=== PATIENT | female | born 1995 | race African-American/Black ===

== ENCOUNTER → 2016-05-17 | Outpatient (CLI) | payer BC ==
[2015-07-16 23:13] VITALS: BP 125/76
--- NOTE | 2016-05-17 15:52 | RAD ---
Early OB ultrasound History: Evaluate size and dates. Technique: Real-time grayscale sonographic images of the gravid uterus were performed transabdominally and transvaginally. Transabdominal imaging was performed to evaluate optimally the uterine fundus. Endovaginal imaging was performed to evaluate optimally the endometrial canal and to increase sensitivity for detection of intrauterine . Comparison: None. Findings: Transabdominal imaging: Uterus measures 9.1 cm in length. Intrauterine is identified with gestational sac and yolk sac thought visualized. Neither ovary is well seen with transabdominal imaging. Endovaginal imaging: Single live intrauterine is identified with gestational sac, yolk sac, and embryonic pole seen. The crown-rump length is 4.1 mm corresponding to 6 weeks 1 day. Estimated date of delivery based on this measurement is January 09, 2017. Gestational age estimation bilateral superior calculation is 12 weeks 1 day. Recommend correlation as to discrepancy. Embryonic heart motion is detected, calculated at 118 bpm. Left ovary measures 2.8 x 1.9 x 1.6 cm and demonstrates several small follicles. Right ovary measures 3.4 x 1.7 x 2.1 cm and is unremarkable. Both ovaries demonstrate normal vascular flow upon Doppler interrogation and are without evidence of torsion. No adnexal masses are seen. Impression: 1. Single live intrauterine . Average ultrasound age is 6 weeks 1 day. Estimated date of delivery is January 09, 2017. 2. Gestational age estimation by last menstrual period calculation is 12 weeks 1 day. Recommend clinical correlation as to cause of discrepancy.
== END | disposition home or self-care (01) ==
LOC: US 14:43
PROVIDERS: ATTEND Family Medicine
DX: Z34.91 Encounter for supervision of normal pregnancy, unspecified, first trimester (principal)
CPT/HCPCS: 76801; 76817

== ENCOUNTER → 2016-05-30 | Outpatient (CLI) | payer BC ==
[2015-07-16 23:13] VITALS: BP 125/76
== END | disposition home or self-care (01) ==
LOC: SPEC 12:12
PROVIDERS: ATTEND Family Medicine
DX: N89.8 Other specified noninflammatory disorders of vagina (principal)
CPT/HCPCS: 87491; 87591

== ENCOUNTER → 2016-06-06 | Outpatient (CLI) | payer BC ==
[2015-07-16 23:13] VITALS: BP 125/76
--- NOTE | 2016-06-06 08:51 | RAD ---
Early OB ultrasound History: Normal supervision early . Technique: Real-time grayscale sonographic images of the gravid uterus were performed transabdominally and transvaginally. Transabdominal imaging was performed to evaluate optimally the uterine fundus. Endovaginal imaging was performed to evaluate optimally the endometrial canal and to increase sensitivity for detection of intrauterine . Comparison: Ultrasound OB 05/17/2016. Findings: Transabdominal imaging: Uterus measures 9.8 cm in length. Single live intrauterine is identified with gestational sac and embryo seen. Neither ovary is visualized transabdominally. Embryonic heart motion is 158 bpm. Endovaginal imaging: Single live intrauterine is identified with gestational sac, yolk sac, and embryo seen. Combining transabdominal and endovaginal imaging, mean crown-rump length is 2.64 cm which corresponds to 9 weeks 3 days. Estimated date of delivery based on this measurement is January 06, 2017. Right ovary measures 2.1 x 3.2 x 2.9 cm and demonstrates a few follicles. Impression: 1. Single live intrauterine . Average ultrasound age is 9 weeks 3 days. Estimated date of delivery is January 06, 2017. There has been appropriate interval growth.
== END | disposition home or self-care (01) ==
LOC: US 07:14
PROVIDERS: ATTEND Family Medicine
DX: Z34.91 Encounter for supervision of normal pregnancy, unspecified, first trimester (principal); Z3A.09 9 weeks gestation of pregnancy
CPT/HCPCS: 76801

== ENCOUNTER → 2016-08-22 | Outpatient (CLI) | payer OTHER ==
[2015-07-16 23:13] VITALS: BP 125/76
--- NOTE | 2016-08-22 15:39 | RAD ---
Obstetrical ultrasound, 08/22/2016: History: Supervision of normal There is a single intrauterine fetus in a variable orientation. The biparietal diameter measures 4.9 cm compatible with a gestational age of 20-21 weeks. This corresponds well to the other measurements yielding an average gestational age of 20 weeks and 3 days and a sonographic EDC of 01/06/2017. This correlates well with the EDC of 01/09/2017 established on the initial ultrasound exam of 05/17/2016. Normal activity and heart motion were seen. The heart rate was 144 bpm. No abnormality is detected. The placenta lies posteriorly with no evidence of a placenta previa. A normal amount of amniotic fluid is present. The cervical length is 5 cm. The maternal ovaries were not visualized. IMPRESSION: Single viable intrauterine fetus of 20-21 weeks gestational age as described above.
== END | disposition home or self-care (01) ==
LOC: US 15:34
PROVIDERS: ATTEND Family Medicine
DX: Z34.92 Encounter for supervision of normal pregnancy, unspecified, second trimester (principal); Z3A.21 21 weeks gestation of pregnancy
CPT/HCPCS: 76805

== ENCOUNTER → 2016-10-24 | Outpatient (CLI) | payer OTHER ==
[2015-07-16 23:13] VITALS: BP 125/76
--- NOTE | 2016-10-24 15:00 | RAD ---
Indication assess positioning. A limited obstetrical ultrasound examination was performed. Examination was performed to assess for positioning. Note is made of a previous examination 2 months earlier. A single fetus is identified in vertex positioning. The maternal cervical length is unremarkable at 4.6 cm. The amount of amniotic fluid appears normal. The placenta is predominantly posterior. A survey was not performed. A heart rate of 143 was documented. IMPRESSION: Viable fetus in vertex position
== END | disposition home or self-care (01) ==
LOC: US 13:28
PROVIDERS: ATTEND Family Medicine
DX: Z34.90 Encounter for supervision of normal pregnancy, unspecified, unspecified trimester (principal)
CPT/HCPCS: 76815

== ENCOUNTER 2016-11-21 22:51 | Emergency (ER) | payer OTHER ==
[~2016-11-21] VITALS: Ht 180.3 cm; Wt 115.7 kg
[2016-11-21 23:09] VITALS: BP 151/73
--- NOTE | 2016-11-21 23:47 | PHYS DOC ---
Past Medical History Past Medical History: No Pertinent History, UTI Past Surgical History: No Surgical History Alcohol Use: Occasionally Drug Use: None Adult General Chief Complaint Chief Complaint: SHORTNESS OF BREATH HPI HPI 21-year-old primigravida's female presenting to the emergency department approximately 33 weeks with worsening shortness of breath. She describes her shortness of breath is worse when she lays down and when she walks. She denies unilateral leg swelling or hemoptysis. She denies a personal or family history of blood clotting disorders. She denies chest pain. This is been present for about 24 hours. Location lungs. Duration intermittent. Review of systems is negative for chest pain abdominal pain nausea vomiting diaphoresis fevers or chills. All other review of systems is negative unless otherwise noted in history of present illness. ED course: 21-year-old female presenting with worsening shortness of breath. On examination the patient is saturating well on room air. Triage blood pressure mildly elevated at 150. Heart rate just above the 100. EKG obtained which shows sinus rhythm with a mildly tachycardic rate. ST segments congruent. Normal axis. Nonspecific T-wave flattening in the inferior leads. Chest x-ray obtained and reviewed by myself shows no obvious pneumothorax or pneumonia. I recommend the patient follow up with her OB doctor over the next 3 or 4 days or return to the emergency department if her symptoms worsen. Review of Systems Review of Systems SEE ABOVE. Allergies Allergies Allergies Coded Allergies Type Severity Reaction Last Updated Verified No Known Drug Allergies 01/12/15 No Physical Exam Physical Exam SEE ABOVE Constitutional: Well developed, well nourished, no acute distress, non-toxic appearance. [] HENT: Normocephalic, atraumatic, bilateral external ears normal, oropharynx moist, no oral exudates, nose normal. [] Eyes: PERRLA, EOMI, conjunctiva normal, no discharge. [] Neck: Normal range of motion, no tenderness, supple, no stridor. [] Cardiovascular:Heart rate regular rhythm, no murmur [] Lungs & Thorax: Bilateral breath sounds clear to auscultation []. No wheezing or crackles. Abdomen: Soft gravid abdomen that is nontender and without rebound tenderness or guarding. Skin: Warm, dry, no erythema, no rash. [] Back: No tenderness, no CVA tenderness. [] Extremities: No tenderness, no cyanosis, no clubbing, ROM intact, trace bilateral edema. no evidence of DVT of the legs. Neurologic: Alert and oriented X 3, normal motor function, normal sensory function, no focal deficits noted. [] Psychologic: Affect normal, judgement normal, mood normal. [] Current Patient Data Vital Signs Vital Signs Date Time Temp Pulse Resp B/P (MAP) Pulse Ox O2 Delivery O2 Flow Rate FiO2 11/21/16 23:09 97.9 101 20 98 Room Air 97.9 EKG EKG [] Radiology/Procedures Radiology/Procedures [] Course & Med Decision Making Course & Med Decision Making Pertinent Labs and Imaging studies reviewed. (See chart for details) [] Dragon Disclaimer Dragon Disclaimer This electronic medical record was generated, in whole or in part, using a voice recognition dictation system. Departure Departure Impression: Primary Impression: Shortness of breath Disposition: 01 HOME, SELF-CARE Condition: STABLE Referrals: BLAYNE DE LA GARZA MD (PCP) Patient Instructions: ABCs of , Shortness of Breath Additional Instructions: Thank you for allowing us to participate in your care today. Followup with your OB in 1-2 days if your symptoms do not improve. Call your Primary Doctor tomorrow and inform them of your visit today. If you do not have a primary care provider you can ask for a list of our primary care providers. Return to the emergency department you have any new or concerning findings. This should be evaluated by the primary care physician and any necessary consulting services for continued management within a few days after discharge. Return to emergency room if you have any new or concerning symptoms including but not limited to fever, chills, nausea, vomiting, intractable pain, any new rashes, chest pain, shortness of air, uncontrolled bleeding, difficulty breathing, and/or vision loss. LORRI ARNETT MD Nov 21, 2016 23:47
--- NOTE | 2016-11-22 06:29 | EKG ---
[facility] [address] [place] [address] Test Date: 2016-11-21 Test Time: 23:22:22 Pat Name: LEO QUESADA Department: Room: Gender: F [employer]: : [id number] Requested By: LORRI ARNETT Order Number: [id number] Reading MD: Citlali Pardo Measurements Intervals [place] Rate: 96 P: 29 CO: 124 QRS: 51 QRSD: 92 T: -17 QT: 342 QTc: 433 Interpretive Statements SINUS RHYTHM T ABNORMALITY IN INFERIOR LEADS ABNORMAL ECG Electronically Signed On 11-24-2016 18:58:31 CDT by Citlali Pardo
--- NOTE | 2016-11-22 08:16 | RAD ---
Chest, 2 views, 11/21/2016: History: Shortness of breath The heart size and pulmonary vascularity are normal. No pulmonary infiltrates are seen. There is no evidence of pleural fluid. IMPRESSION: No acute cardiopulmonary abnormality is detected.
== END 2016-11-22 00:05 | disposition home or self-care (01) ==
LOC: ER 22:51
DX: O26.893 Other specified pregnancy related conditions, third trimester (principal); R06.02 Shortness of breath; Z3A.33 33 weeks gestation of pregnancy
CPT/HCPCS: 71020; 93005; 99284

== ENCOUNTER 2017-01-01 08:07 | Observation (INO) | payer OTHER ==
[2017-01-01] MEDS ORDERED: IV RINGERS,LACTATED 1000ML 1,000 ML IV PRN (09:15)
[2017-01-01] MEDS ORDERED: PNV1TABL25 PO (09:19)
== END 2017-01-01 15:30 | disposition home or self-care (01) ==
LOC: 3 SO LND 08:07
PROVIDERS: ADMIT Family Medicine; ATTEND Family Medicine
DX: O62.9 Abnormality of forces of labor, unspecified (principal); Z3A.38 38 weeks gestation of pregnancy
CPT/HCPCS: G0378; G0379

== ENCOUNTER 2017-01-08 10:20 | Observation (INO) | payer OTHER ==
[~2017-01-08 10:20] MED LIST: PNV1TABL25 PO
[2017-01-08 12:09] LABS: NEG OBC AMNIO NEG; POS OBC AMNIO POS
[2017-01-11] MEDS ORDERED: IBUP800T19 PO (10:28)
[2017-01-11] MEDS ORDERED: DOCU-109 PO (10:28)
[2017-01-11] MEDS ORDERED: FERR325T72 PO (10:28)
== END 2017-01-08 18:10 | disposition home or self-care (01) ==
LOC: 3 SO LND 10:20
PROVIDERS: ADMIT Family Medicine; ATTEND Family Medicine
DX: O42.92 Full-term premature rupture of membranes, unspecified as to length of time between rupture and onset of labor (principal); Z3A.39 39 weeks gestation of pregnancy
CPT/HCPCS: 36415; 84112; G0378; G0379

== ENCOUNTER 2017-12-21 21:07 | Emergency (ER) | payer SELFPAY ==
[~2017-12-21] VITALS: Ht 180.3 cm; Wt 99.8 kg
[~2017-12-21 21:07] MED LIST changes: +DOCU-109 PO; +FERR325T72 PO; +IBUP800T19 PO
[2017-12-21 21:14] VITALS: BP 151/80
[2017-12-21] MEDS ORDERED: NAPROXEN 500 MG TABLET PO ONE (22:00)
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
[2017-12-21] MEDS ORDERED: NAPR-514 PO (22:53)
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
== END 2017-12-21 23:00 | disposition home or self-care (01) ==
LOC: ER 21:07
DX: S00.432A Contusion of left ear, initial encounter (principal); S00.12XA Contusion of left eyelid and periocular area, initial encounter; X58.XXXA Exposure to other specified factors, initial encounter; Y93.89 Activity, other specified; Y92.89 Other specified places as the place of occurrence of the external cause; Y99.8 Other external cause status
CPT/HCPCS: 70480; 81025; 99284

== ENCOUNTER → 2018-02-02 | Outpatient (CLI) | payer SELFPAY ==
[~2018-02-02] MED LIST changes: +NAPR-514 PO
--- NOTE | 2018-02-02 16:18 | RAD ---
Pelvic ultrasound, 02/02/2018: HISTORY: Right lower quadrant pain Transabdominal and transvaginal scans were obtained. The uterus measures 8.2 x 6.3 x 4.5 cm. A normal central uterine echo complex is evident, measuring 5 mm in AP dimension. No uterine abnormality is seen. The right ovary measures 4.1 x 2.2 x 2.0 cm. The left ovary measures 3.8 x 1.9 x 1.7 cm. Several small subcentimeter follicular cysts are evident, more so on the right. There is blood flow in both ovaries. No adnexal mass is seen. No free fluid is evident in the pelvis. IMPRESSION: No significant abnormality is detected. Electronically signed by: Miquel Karimi MD (02/02/2018 4:14 PM) [facility]
== END | disposition home or self-care (01) ==
LOC: US 15:35
PROVIDERS: ATTEND Family Medicine
DX: N83.01 Follicular cyst of right ovary (principal)
CPT/HCPCS: 76830; 76856